=== PATIENT | male | born 1975 | race Caucasian/White ===

== ENCOUNTER 2019-06-06 17:42 | Emergency (ER) | payer BC ==
[~2019-06-06] VITALS: Ht 172.7 cm; Wt 86.2 kg
--- NOTE | 2019-06-06 18:02 | NUR ---
at bedside to examine patient.
[2019-06-06] MEDS ORDERED: NITROGLYCERIN 0.4 MG/TAB BOTTLE SL ONE ×2 (18:15→18:16)
[2019-06-06] MEDS ORDERED: PANTOPRAZOLE SODIUM 40 MG VIAL IV ONE (18:15)
[2019-06-06] MEDS ORDERED: IV NORMAL SALINE 1000 ML BAG IV ONE (18:15)
[2019-06-06] MEDS ORDERED: PANTOPRAZOLE SODIUM 40 MG VIAL ONE (18:16)
[2019-06-06 18:20] LABS: BASOPHILS # (AUTO) 0.1 K/uL (0.0-8.0); BASOPHILS % (AUTO) 0.4 % (0.0-2.0); EOSINOPHILS # (AUTO) 0.1 K/uL (0.0-0.7); EOSINOPHILS % (AUTO) 0.4 % (0.0-7.0); HEMATOCRIT 43.1 % (36.7-47.1); HEMOGLOBIN 14.6 g/dL (12.5-16.3); LYMPHOCYTES # (AUTO) 1.3 K/uL (20.0-40.0); LYMPHOCYTES % (AUTO) 10.8 % (20.5-51.5); MEAN CORPUSCULAR HEMOGLOBIN 30.9 uug (23.8-33.4); MEAN CORPUSCULAR HGB CONC 34 g/dL (32.5-36.3); MEAN CORPUSCULAR VOLUME 91.4 fL (73.0-96.2); MONOCYTES # (AUTO) 0.8 K/uL (2.0-10.0); NEUTROPHILS # (AUTO) 9.9 K/uL (1.8-8.9); NEUTROPHILS % (AUTO) 81.4 % (38.5-71.5); PLATELET COUNT (AUTO) 251 K/uL (152-348); RED BLOOD CELL COUNT(AUTO) 4.71 MIL/uL (4.06-5.63); WHITE BLOOD COUNT (AUTO) 12.1 K/uL (3.6-10.2)
[2019-06-06 18:28] LABS: POTASSIUM 4.2 mmol/L (3.5-5.1)
[2019-06-06 18:34] LABS: BILIRUBIN,DIRECT 0.1 mg/dL (0.0-0.2); BILIRUBIN,TOTAL 0.4 mg/dL (0.2-1.0); TOTAL PROTEIN, SERUM 7.1 g/dL (6.4-8.2)
[2019-06-06] MEDS ORDERED: LIDOCAINE VISCUS 2% 15 ML UDC MM ONE (20:45)
[2019-06-06] MEDS ORDERED: MAG HYDROX/AL HYDROX/SIMETH 30 ML LIQUID UDC PO ONE (20:45)
[2019-06-06] MEDS ORDERED: MAG HYDROX/AL HYDROX/SIMETH 30 ML LIQUID UDC ONE (20:53)
[2019-06-06] MEDS ORDERED: LIDOCAINE VISCUS 2% 15 ML UDC ONE (20:53)
[2019-06-06 21:29] VITALS: BP 133/76
--- NOTE | 2019-06-06 21:29 | NUR ---
Patient discharged to home in stable conditon. Written and verbal after care instructions given. Patient verbalizes understanding of instructions. PATIENT LEFT WITH STABLE GAIT.
== END 2019-06-06 21:30 | disposition home or self-care (01) ==
LOC: ER 17:51
DX: K21.9 Gastro-esophageal reflux disease without esophagitis (principal); R55 Syncope and collapse
CPT/HCPCS: 71045; 80048; 80076; 83690; 84484 ×2; 85025; 85730; 93005 ×2; 96361; 96374; 99284; C9113; 36415; 70030-TC; A4663; J7030